=== PATIENT | female | born 1950 | race Caucasian/White ===

== ENCOUNTER → 2017-11-11 01:49 | Outpatient (CLI) | payer MEDICARE, SELFPAY ==
--- NOTE | 2017-11-11 13:10 | DI.REPORT_ITS ---
SYMPTOM/DIAGNOSIS: SCREENING, Z12.31 MAMMOGRAM: Mammograms were interpreted according to the usual protocol including computer analysis with CAD system, tomosynthesis and C view imaging. Comparison with prior examinations. Breast density B. No masses or microcalcifications are seen. There is nothing to suggest malignancy. IMPRESSION: Negative mammogram. Routine screening is recommended. Category I. MQSA ASSESSMENT OF FINDINGS: Negative. Category 1. Patient will receive a letter notifying them of these results. BI-RADS category B. There are scattered areas of fibroglandular density.
--- NOTE | 2017-11-11 14:15 | DI.REPORT_ITS ---
SYMPTOMS/DIAGNOSIS: SCREENING FOR OSTEOPOROSIS IN A POSTMENOPAUSAL WOMAN, Z78.0 DEXA SCAN: Routine examination was performed. No priors for comparison. The lateral spine film shows no compression fracture deformities. Evaluation of the left hip shows a total T score of -1.0 and a Z score of 0.3, which is within normal limits. Evaluation of the lumbar spine shows a total T score of -0.5 and a Z score of 1.3, which is within normal limits. There is no evidence of osteoporosis. IMPRESSION: No evidence of osteoporosis.
== END ==
PROVIDERS: PCP Family Medicine; Visit Provider Family Medicine
DX: Z12.31 Encounter for screening mammogram for malignant neoplasm of breast (principal); Z78.0 Asymptomatic menopausal state; Z13.820 Encounter for screening for osteoporosis
CPT/HCPCS: 77063; 77067; 77080

== ENCOUNTER 2018-12-30 09:14 | Outpatient (REF) | payer MEDICARE, OTHER, SELFPAY ==
[2018-12-30 12:52] LABS: ALT 26 U/L (14-59); AST 26 U/L (15-37); Albumin 4.1 g/dL (3.4-5.0); Alkaline Phosphatase 68 U/L (46-116); Anion Gap 7.8 mmol/L (3-11); BUN 14 mg/dL (7-18); Bilirubin, Total 0.5 mg/dL (0.2-1.0); CO2 29.2 mmol/L (21.0-32.0); CREATININE 0.79 mg/dL (0.55-1.02); Calcium 9.2 mg/dL (8.5-10.1); Calculated LDL 58 mg/dL; Chloride 105 mmol/L (98-107); Cholesterol 141 mg/dL (50-200); Glucose 89 mg/dL (70-100); HDL Cholesterol 68 mg/dL (40-60); Potassium 4.8 mmol/L (3.5-5.1); Sodium 142 mmol/L (136-145); Total Protein 7.6 g/dL (6.4-8.2); Triglyceride 78 mg/dL (30-150)
== END 2018-12-30 09:34 ==
LOC: NCHCN 09:14
PROVIDERS: PCP Family Medicine; Visit Provider Family Medicine
DX: I25.810 Atherosclerosis of coronary artery bypass graft(s) without angina pectoris (principal)
CPT/HCPCS: 80053; 80061

== ENCOUNTER 2019-12-31 04:45 | Outpatient (CLI) | payer MEDICARE, OTHER, SELFPAY ==
--- NOTE | 2019-12-31 12:39 | DI.MAMMO_ITS ---
EXAM: MG MAMMO SCREENING CLINICAL HISTORY: SCREENING,Z12.31 TECHNIQUE: Bilateral full field digital CC and MLO mammographic images were obtained with 3D tomosyn thesis and utilizing computer aided detection (CAD). COMPARISON: Available for comparison. FINDINGS: Masses/Architectural Distortion: None seen. Microcalcifications: No suspicious pleomorphic-type are seen. Skin Thickening/Nipple Retraction: None. IMPRESSION: 1. No significant interval change with no specific features of malignancy noted. 2. Unless there is more urgent need, screening mammography is recommended, as per [employer] guidelines. BI-RADS Category 1 - Negative Breast Density - Category B - Scattered areas of fibroglandular density A negative radiographic report should not delay biopsy if a dominant or clinically suspicious mass is present. Up to ten percent of cancers are not identified on mammography. A negative report may reinforce clinical impression. Adenosis and dense breasts may obscure an underlying neoplasm. False positive reports average 6 to 10%. Patient will receive a letter notifying them of these results.
== END 2019-12-31 05:05 ==
PROVIDERS: PCP Family Medicine; Visit Provider Family Medicine
DX: Z12.31 Encounter for screening mammogram for malignant neoplasm of breast (principal)
CPT/HCPCS: 77063; 77067

== ENCOUNTER 2020-07-27 15:48 | Outpatient (REF) | payer MEDICARE, OTHER, SELFPAY ==
[2020-07-27 21:03] LABS: Abs Immature Grans 0.01 10^3/uL (0.0-0.06); Absolute Basophil Count 0.04 10^3/uL (0.0-0.2); Absolute Eosinophil Count 0.16 10^3/uL (0.0-0.7); Absolute Monocyte Count 0.58 10^3/uL (0.1-0.8); Absolute Neutrophil Count 2.77 10^3/uL (1.2-6.7); Basophils % 0.7; Eosinophils % 2.9; HCT 38.5 % (36.0-46.0); HGB 12.6 g/dL (11.2-15.7); Immature Grans % 0.2; Lymphocytes % 34.8; MCH 31.7 pg (27.0-33.0); MCHC 32.7 % (32.0-36.0); MCV 96.7 fL (80-95); MPV 12.3 fL (8.0-11.0); Monocytes % 10.6; Neutrophils % 50.8; Nucleated RBC 0 %; Platelet Count 221 10^3/uL (130-400); RBC 3.98 10^6/uL (3.93-5.22); RDW 12.1 % (11.7-14.6); RDW-SD 43.4 fL; WBC 5.46 10^3/uL (4.4-10.8)
[2020-07-27 21:09] LABS: ALT 33 U/L (14-59); AST 26 U/L (15-37); Alkaline Phosphatase 69 U/L (46-116); Anion Gap 10.4 mmol/L (3-11); BUN 18 mg/dL (7-18); Bilirubin, Total 0.3 mg/dL (0.2-1.0); CO2 25.6 mmol/L (21.0-32.0); CREATININE 0.8 mg/dL (0.55-1.02); Chloride 105 mmol/L (98-107); Glucose 91 mg/dL (74-106); Potassium 4.2 mmol/L (3.5-5.1); Sodium 141 mmol/L (136-145); Total Protein 7.7 g/dL (6.4-8.2)
== END 2020-07-27 15:49 | disposition home or self-care (01) ==
LOC: NCHCN 15:48
PROVIDERS: PCP Family Medicine; Visit Provider Family Medicine
DX: R53.83 Other fatigue (principal); L29.8 Other pruritus
CPT/HCPCS: 80053; 84443; 85025

== ENCOUNTER 2020-11-17 17:23 | Outpatient (REF) | payer MEDICARE, OTHER, SELFPAY | END 2020-11-17 17:24 | disposition home or self-care (01) | LOC: LBN 17:23 | PROVIDERS: PCP Family Medicine; Visit Provider Physician Assistant | DX: R35.0 Frequency of micturition (principal) | CPT/HCPCS: 87086 ==

== ENCOUNTER → 2021-02-23 09:24 | Outpatient (BNVA) | payer MEDICARE, OTHER, SELFPAY | PROVIDERS: PCP Family Medicine; Referring Provider Family Medicine; Visit Provider Surgery | DX: Z12.11 Encounter for screening for malignant neoplasm of colon (principal); Z12.12 Encounter for screening for malignant neoplasm of rectum; K59.01 Slow transit constipation ==

== ENCOUNTER 2021-03-12 03:50 | Outpatient (CLI) | payer MEDICARE, OTHER, SELFPAY ==
[2021-03-12 10:33] LABS: Source Nasal/Nares
[2021-03-12 14:46] LABS: COVID-19 PCR Negative (Negative)
== END 2021-03-12 03:51 | disposition home or self-care (01) ==
LOC: LBO 03:50
PROVIDERS: PCP Family Medicine; Visit Provider Surgery
DX: Z20.822 Contact with and (suspected) exposure to COVID-19 (principal); Z01.818 Encounter for other preprocedural examination
CPT/HCPCS: 87635

== ENCOUNTER 2021-03-13 08:27 | Day surgery (SDC) | payer MEDICARE, OTHER, SELFPAY ==
--- NOTE | 2021-03-13 06:44 | W.COLOREPORT ---
Colonoscopy Report Date of procedure: 03/13/21 Pre-op diagnosis general: Colon Cancer Screening Post-op diagnosis procedure note: other (diverticula) Procedure: Colonoscopy with biopsy Surgeon: Marcia Sarah Anesthesia Type: General:No Airway (Allen Simon CRNA) Estimated blood loss (mL): 3 Pathology: other (ascending colon polyp ?) Complications: None Disposition: same day Indications: Mrs Grimes is a pleasant 71-year-old female who is never had a colonoscopy before. She comes in today to discuss her first colonoscopy. She has a history of chronic constipation which did get worse about a month ago. With increased of fiber and fluid in her diet this is again gotten better. She has had no weight loss, abdominal pain, melena or him he is here. She has no family history of colon cancer. The patient is anxious because she has had 3 people close to her diagnosed with colon cancer in the last year. She is also had a close friend who had a perforation at the time of a colonoscopy. We did discuss the risks and the benefits and complication rates. I tried to reassure her about the procedure and that it is safe. Risks, benefits and complications have been reviewed. Complications include but are not limited to bleeding, pain, perforation, missed small lesion/polyp, sore throat, aspiration and adverse reaction to the medications. Questions were entertained and answered to their satisfaction and they wished to proceed. No guarantees were given or implied. Proceed with colonoscopy under sedation Prep: Miralax/Dulcolax Procedure Start Time: 10:27 Procedure End Time: 10:52 Retraction Time: 12 minutes Findings: moderate diverticulosis ? polyp in the ascending colon mild melanosis coli Procedure Description: After informed consent was obtained the patient was taken to the procedure room and placed in a left decubitous position. Monitors were applied and a time out was done. The patients name, date of , procedure, allergies to medications and metal in their body was reviewed. The patient was then sedated. Once sedated and comfortable a rectal exam was done. External exam was normal. Internal exam revealed a normal sphincter tone and no palpable masses. The scope was then introduced and retro-flexed. No internal hemorrhoids, polyps or masses were identified on retro-flexion. The scope was then advanced to the cecum without difficulty. The ileocecal vlave and appendiceal orifice were identified. The prep was adequate. The scope was then slowly retracted over 12 minutes back into the rectum. There was a ? of a polyp in the ascending colon which was removed. There was moderate sigmoid diverticulosis noted. The scope was removed and the patient was woken up and taken back to Same day surgery in stable condition. The patient tolerated the procedure well and there were no immediate complications. Follow up: The patient should follow up in 10 years unless they develop changes in bowel habits or other new gastrointestinal complaints.
--- NOTE | 2021-03-13 06:45 | PDOC.DSDIS_ITS ---
Discharge Plan Disposition Patient Disposition: HOME Condition: Good Discharge Details Reason For Visit: Colonoscopy Attending Provider: Marcia Sarah Primary Care Provider: Sheri Vázquez Home Meds and New Rx's Prescriptions: Continued meloxicam 15 mg tablet 15 mg PO DAILY RF: 0 acetaminophen 325 mg capsule 650 mg PO ONCE PRNRF: 0 midodrine 5 mg tablet 5 mg PO BID RF: 0 atorvastatin [Lipitor] 40 MG tablet 1 tab PO HS RF: 0 metoprolol succinate [Toprol XL] 25 MG tablet extended release 24 hr 0.5 tab PO DAILY Qty: 0 RF: 0 aspirin [Aspir-81] 81 MG tablet,delayed release (DR/EC) 81 mg PO DAILY RF: 0 Discontinued bisacodyl [Dulcolax (bisacodyl)] 5 mg tablet,delayed release (DR/EC) 5 mg PO ONCE Qty: 4 RF: 0 polyethylene glycol 3350 17 gram/dose powder 17 g PO ONCE Qty: 238 RF: 0 Discharge Instructions Instructions: Diverticulosis (DC) Additional Instructions: Findings: Sigmoid diverticulosis ? polyp Follow up: will depend on biopsy results Please call if you develop: fevers >101.5 Nausea or Vomiting Abdominal pain that is not transient Rectal bleeding that is more then a tbsp A hard abdomen and inability to pass gas DAY SURGERY UNIT POST ENDOSCOPY INSTRUCTIONS Instructions for everyone who is given Anesthesia: For your safety, please do the following for the next 24 Hours: a. Do not drive or operate dangerous equipment b. Do not drink alcohol beverages or use any recreational drugs for the first 24 hours or while taking pain medications. The medications in your body may have a reaction that can be dangerous. c. Do not make any important decisions or sign any important papers 1. Generally there are no restrictions on your activity after a day or so has gone by, but you may feel a bit fatigued for a few days. 2. After you arrive home you may have a light meal and return to a normal diet as you can tolerate it without feeling sick to your stomach. 3. After surgery, you may feel pain or discomfort. This should be only trans ient, but if it persists please contact your doctor. 4. If there are any questions regarding the findings of your procedure, please feel free to contact your doctor. 6. If you are unable to contact your doctor with a problem, contact the hospital at [phone]. 5. Continue all your regular medications unless directed otherwise. I understand the above instructions and have no questions. Signature of Patient or Responsible Adult Escort Date/Time Name of Responsible Adult Escort Signature of Nurse Date/Time Activity:: Activity as Tolerated Diet:: high fiber diet Discharge Orders Discharge Orders: Discharge Order (Routine); Ordered 03/13/21 Ordered By: Marcia Sarah
[2021-03-13 08:37] VITALS: BP 172/73; PULSE 61; RESP 16; TEMP 36.4; O2SAT 100
[2021-03-13] MEDS: Lactated Ringers 1,000 ML 80 ML IV (09:09)
--- NOTE | 2021-03-13 10:13 | W.ANESPRE ---
General Info Date of Service Date Performed: 03/13/21 Height: 5 ft 6.5 in Weight: 87.9 kg Body Mass Index (BMI): 30.8 Surgical Procedure: Operation Date: 03/13/21 09:50 Proposed Procedures Side Surgeon p Michelle Sarah MD Meds Allergies and Home Medications Allergies Allergy/AdvReac Type Severity Reaction Status Date / Time No Known Allergies Allergy Unverified 03/13/21 08:40 Home Medication Medication Instructions Recorded aspirin [Aspir-81] 81 mg PO DAILY 06/20/16 atorvastatin [Lipitor] 1 tab PO HS 02/15/17 metoprolol succinate [Toprol XL] 0.5 tab PO DAILY #0 02/16/17 acetaminophen 325 mg capsule 650 mg PO ONCE PRN cap 02/06/21 meloxicam 15 mg tablet 15 mg PO DAILY 02/06/21 midodrine 5 mg tablet 5 mg PO BID tab 02/06/21 bisacodyl 5 mg tablet,delayed 5 mg PO ONCE #4 tab 02/23/21 release polyethylene glycol 3350 17 17 g PO ONCE #238 g 02/23/21 gram/dose oral powder Current Visit Medications: Current Medications Generic Name Dose Route Start Last Admin Trade Name Freq PRN Reason Stop Dose Admin Hyoscyamine Sulfate 0.125 mg 03/13/21 06:44 Hyoscyamine 0.125 Mg Sl/Oral/Chew SL DIRECTED PRN Ringer's Solution 1,000 mls @ 80 mls/hr 03/13/21 06:00 03/13/21 09:09 IV 04/11/21 23:59 80 mls/hr INFUSION ASHUTOSH Administration IV Miscellaneous Supplies 1 each 03/13/21 06:00 Iv Access IV 04/11/21 23:59 DIRECTED ASHUTOSH Ondansetron HCl 4 mg 03/13/21 06:44 Ondansetron 4 Mg/2 Ml Vial IVP Q4H PRN PRN Nausea / Vomiting Sodium Chloride 0 ml 03/13/21 06:00 Normal Saline Flush 10 Ml Syr IV 04/11/21 23:59 PRN PRN Sodium Chloride 0 ml 03/13/21 06:00 Normal Saline 10 Ml Vial IJ 04/11/21 23:59 DIRECTED PRN Sterile Water 0 ml 03/13/21 06:00 Water,Injection,Sterile 10 Ml Vial IJ 04/11/21 23:59 DIRECTED PRN PFS Active Problems Active Problems: Problem Status Onset Code Constipation K59.00 Medical History Medical History Chest pain Fatigue History of coronary atherosclerosis Hx of non-ST elevation myocardial infarction (NSTEMI) 2017- /U with Dr. Wisdom last seen 12/2020 Menopause Syncope Surgical History Surgical History (Updated 03/13/21 @ 08:39 by Luz Salcedo RN) H/O section History of coronary artery bypass graft Tobacco Smoking/Tobacco Use Status: Former Tobacco Use Alcohol Alcohol Intake: current Alcohol intake frequency: 0-2 drinks per day Alcohol type: wine Substance Use Substance use: Never Substance use type: does not use Prental History History Para 1 Hx # Term Pregnancies Multiple births Hx # Pregnancies Ectopic pregnancies AB induced Hx Number of Living Children AB spontaneous Vital Signs and Lab Results Vital Signs Most Recent Vital Signs in EMR: Most Recent Vital Signs Temp Pulse Resp BP Pulse Ox 36.4 C L 61 16 172/73 H 100 03/13/21 08:37 03/13/21 08:37 03/13/21 08:37 03/13/21 08:37 03/13/21 08:37 Lab Results Blood Type / Crossmatch: No Data to Display Complete Blood Count: No Data to Display Complete Metabolic Panel: No Data to Display Liver Function Panel: No Data to Display Coagulation Panel: No Data to Display Cardiac Panel: No Data to Display Arterial Blood Gas: No Data to Display Venous Blood Gas: No Data to Display Pancreas Panel: No Data to Display Thyroid Panel: No Data to Display Infectious Disease: Coronavirus (COVID-19)(PCR) Negative (Negative) 03/12/21 09:09 03/12/21 Coronavirus 2019 Source Nasal/Nares 03/12/21 09:09 03/12/21 Blood Cultures: No Data to Display Toxicology Panel: No Data to Display Anesthesia Assessment and Plan Anesthesia History Personal History: No History of Anesthesia Complications Family History: No Family History of Anesthesia Complications Exercise Tolerance Exercise Tolerance: Metabolic Equivalents>4 Pertinent Negatives Pertinent Negatives: No Symptoms of GERD, No Major Cardiovascular Symptoms or Complaints, No Major Pulmonary Symptoms or Complaints and No History of CVA/TIA Cardiac & Pulmonary Exam Cardiac Exam: Normal S1/S2 Heart Sounds Pulmonary Exam: Clear Bilateral Breath Sounds Implantable Cardiac Device Does patient have a Pacemaker or an ICD?: No Airway Exam Known Difficult Airway: No Mallampati Class: 1 Mouth Opening: Normal (> 3cm) Thyromental Distance: Greater than 3 cm Neck Range of Motion: Full ROM Neck Circumference: Normal Teeth Condition: Normal Dentition ASA Classification ASA Score: ASA 2 Emergency Case?: No NPO Status NPO Status: NPO Clears >2 hours, Solids >8 hours Anesthesia Plan Resuscitation Status: Full Code Anesthesia Technique: General Anesthesia Airway Planned: Natural Airway Monitors Used: Standard Monitors
[2021-03-13 10:15] VITALS: BMI 30.8
--- NOTE | 2021-03-13 10:42 | BOWEL_PTH ---
PATIENT: Kimberly Grimes LOC: [facility] U#:[id number] AGE/SX: 71/F ROOM: RE03/13/[address]: Marcia Sarah MD : 1950 BED: DIS: 03/13/2021 SPEC #: [id number] RECD: 03/13/21 12:48 STATUS: BHARATHI REQ #: [id number] KATIE: 03/13/21 10:[address]: Marcia Sarah DEPT: Surgical Specimen RECD BY: Slime Roldan ENTERED: 03/13/21 12:48 SP TYPE: Bowel OTHR DR: Sheri Vázquez Tissues: 1 - BIOPSY BOWEL Procedures: GROSS AND MICRO LEVEL 4 Comments: [id number]
--- NOTE | 2021-03-13 11:00 | W.ANESPOSTOP ---
Postoperative Evaluation Date, Time and Location Date Performed: 03/13/21 Time Performed: 11:00 Patient Location: Day Surgery Unit Vital Signs Most Recent Imported Vital Signs: Most Recent Vital Signs Temp Pulse Resp BP Pulse Ox 36.4 C L 61 16 172/73 H 100 03/13/21 08:37 03/13/21 08:37 03/13/21 08:37 03/13/21 08:37 03/13/21 08:37 Most Recent Manually Entered Vital Signs: Adult Blood Pressure: 110/68 Heart Rate: 60 Respirations: 12 Oxygen Saturation (%): 95 Temperature (C): 36.7 C Pain Score (0-10 Scale): 0 Pain Score Most Recent Pain Score: Most Recent Pain Score Pain Level 0 03/13/21 08:37 Assessment Mental Status: Awake (Alert & Oriented to Patient Baseline) Airway and Respiratory Function: Patent airway with normal (patient baseline) respiratory exam Cardiovascular Function: Hemodynamically Stable Hydration Status: Adequately Hydrated Nausea & Vomiting: No Nausea or Vomiting Pain: Pt. Denies Any Pain Peripheral Nerve Block: Patient did not receive a nerve block
[2021-03-13 11:01] VITALS: BP 110/68; PULSE 60; RESP 12; TEMPC 36.7; O2SAT 95
[2021-03-13 11:02] VITALS: BP 110/68; PULSE 58; RESP 16; TEMP 36.7; O2SAT 97
[2021-03-13 11:30] VITALS: BP 136/67; PULSE 52; RESP 16; TEMP 36.1; O2SAT 99
== END 2021-03-13 11:43 | disposition home or self-care (01) ==
LOC: SUR 08:28
PROVIDERS: PCP Family Medicine; Visit Provider Surgery
PROC: 0DJD8ZZ Inspection of Lower Intestinal Tract, Via Natural or Artificial Opening Endoscopic (ICD-10-PCS; CPT 45378; principal; 2021-03-13 09:45)
DX: Z12.11 Encounter for screening for malignant neoplasm of colon (principal); K63.89 Other specified diseases of intestine; K59.09 Other constipation; K57.30 Diverticulosis of large intestine without perforation or abscess without bleeding
CPT/HCPCS: 45380; 88305

== ENCOUNTER → 2022-02-25 01:42 | Outpatient (CLI) | payer MEDICARE, OTHER, SELFPAY ==
--- NOTE | 2022-02-25 | DI.MAMMO_ITS ---
Exam(s) MAMMO SCREENING EXAM: MAMMO SCREENING CLINICAL HISTORY: SCREENING MAMMO Z12.31 PREVENTATIVE CARE Z00.00. TECHNIQUE: Bilateral full field digital CC and MLO mammographic images were obtained with 3D tomosyn thesis and utilizing computer aided detection (CAD). COMPARISON: Prior mammograms were reviewed. FINDINGS: No new significant findings in left breast. In the right breast there is a new nodule evident inferomedially. This is possibly subcutaneous or s kin mole. There are no malignant-appearing microcalcification groups in this region or elsewhere in either [address]. There is no significant architectural distortion nor skin thickening-retraction. IMPRESSION: No radiographic evidence of malignancy in the left breast.. New nodule-possible skin mole in the right breast. Additional views including repeat views with mole marker in place as well as spot compression views recommended. Also ultrasound. BI-RADS Category 0 - Assessment Incomplete: Need additional imaging evaluation Breast Density - Category B - Scattered areas of fibroglandular density Breast density Category C or D implies that the patient has dense breast tissue. Dense breast tissue can make it harder to find cancer on a mammogram. Dense breast tissue is also associated with an incr eased risk of breast cancer. This information about the result of the mammogram report was provided to the patient to raise their awareness. Use this report when you speak with the patient about their risks for breast cancer, which includes their family history. At that time, you may recommend additional screening tests (Ultrasoun d or MRI) as these tests may add significant information. A negative radiographic report should not delay biopsy if a dominant or clinically suspicious mass is present. Up to ten percent of cancers are not identified on mammography. A negative report may reinforce clinical impression. Adenosis and dense breasts may obscure an underlying neoplasm. False positive reports average 6 to 10%. Patient will receive a letter notifying them of these results.
== END ==
PROVIDERS: PCP Family Medicine; Visit Provider Family Medicine
DX: Z12.31 Encounter for screening mammogram for malignant neoplasm of breast (principal); R92.8 Other abnormal and inconclusive findings on diagnostic imaging of breast
CPT/HCPCS: 77063; 77067

== ENCOUNTER → 2022-03-04 01:55 | Outpatient (CLI) | payer MEDICARE, OTHER, SELFPAY ==
--- NOTE | 2022-03-04 13:20 | DI.MAMMO_ITS ---
Exam(s) MAMMO SCREEN CALL BACK UNI EXAM: MAMMO SCREEN CALL BACK UNI CLINICAL HISTORY: F/U MAMMO, NEW NODULE,? SKIN MOLE,R92.8 TECHNIQUE: MLO spot compression views with tomographic imaging were performed. COMPARISON: 25 February 2022 and exams back to 2013. FINDINGS: AP marker was placed over the palpable abnormality in the inferior right breast. This corresponds to a skin lesion.No suspicious masses or suspicious microcalcifications are seen within the breast tiss ue.. IMPRESSION: BI-RADS Category 1, Negative Yearly screening mammography is recommended. Breast Density - Category B, scattered fibroglandular densities.
== END ==
PROVIDERS: PCP Family Medicine; Visit Provider Family Medicine
DX: Z12.31 Encounter for screening mammogram for malignant neoplasm of breast (principal); R92.8 Other abnormal and inconclusive findings on diagnostic imaging of breast; N64.59 Other signs and symptoms in breast
CPT/HCPCS: 77063; 77067

== ENCOUNTER → 2023-06-26 02:35 | Outpatient (CLI) | payer MEDICARE, SELFPAY ==
--- NOTE | 2023-06-26 | DI.MAMMO_ITS ---
Exam(s) MAMMO SCREENING EXAM: MAMMO SCREENING CLINICAL HISTORY: SCREENING,Z12.31,WELL ADULT/PREVENTATIVE EXAM,Z00.00 TECHNIQUE: Bilateral full field digital CC and MLO mammographic images were obtained with 3D tomosyn thesis and utilizing computer aided detection (CAD). COMPARISON: Available for comparison. FINDINGS: Masses/Architectural Distortion: None seen. Microcalcifications: No suspicious pleomorphic-type are seen. Skin Thickening/Nipple Retraction: None. IMPRESSION: 1. No significant interval change with no specific features of malignancy noted. 2. Unless there is more urgent need, screening mammography is recommended, as per [place] [employer] guidelines. BI-RADS Category 1 - Negative Breast Density - Category B - Scattered areas of fibroglandular density Breast density category C or D implies that the patient has dense breast tissue. Dense breast tissue is very common and is not abnormal but dense breast tissue can make it harder to find cancer on a ma mmogram. Also, dense breast tissue may increase their breast cancer risk. This information about the result of the mammogram report was provided to the patient to raise their awareness. Use this report when you speak with the patient about their risks for breast cancer, which includes their family hist ory. At that time, you may recommend for more screening tests (Ultrasound or MRI) as they might be us eful based on their risk. A negative radiographic report should not delay biopsy if a dominant or clinically suspicious mass is present. Up to ten percent of cancers are not identified on mammography. A negative report may reinforce clinical impression. Adenosis and dense breasts may obscure an underlying neoplasm. False positive reports average 6 to 10%. Patient will receive a letter notifying them of these results.
== END ==
PROVIDERS: PCP Family Medicine; Visit Provider Family Medicine
DX: Z12.31 Encounter for screening mammogram for malignant neoplasm of breast (principal)
CPT/HCPCS: 77063; 77067

== ENCOUNTER 2023-10-02 17:06 | Outpatient (REF) | payer MEDICARE, SELFPAY ==
[2023-10-02 20:52] LABS: ALT 26 U/L (14-59); AST 22 U/L (15-37); Albumin 4.2 g/dL (3.4-5.0); Alkaline Phosphatase 71 U/L (46-116); Anion Gap 4.4 mmol/L (3-11); BUN 20 mg/dL (7-18); Bilirubin, Total 0.65 mg/dL (0.2-1.0); CO2 26.6 mmol/L (21.0-32.0); CREATININE 0.9 mg/dL (0.55-1.02); Calcium 9.1 mg/dL (8.5-10.1); Calculated LDL 64 mg/dL (<100); Chloride 106 mmol/L (98-107); Cholesterol 146 mg/dL (<200); Estimated GFR 68.35 (mL/min/1.73m2); Glucose 87 mg/dL (74-106); HDL Cholesterol 66 mg/dL (40-60); Potassium 4.9 mmol/L (3.5-5.1); Sodium 137 mmol/L (136-145); Total Protein 7.8 g/dL (6.4-8.2); Triglyceride 80 mg/dL (<150); Vitamin D 25 Total 16.8 ng/mL (30-100)
== END 2023-10-02 17:07 | disposition home or self-care (01) ==
LOC: NCHCN 17:06
PROVIDERS: PCP Family Medicine; Visit Provider Family Medicine
DX: Z00.00 Encounter for general adult medical examination without abnormal findings (principal)
CPT/HCPCS: 80053; 80061; 82306

== ENCOUNTER 2024-02-17 08:39 | Outpatient (CLI) | payer MEDICARE, SELFPAY ==
--- NOTE | 2024-02-17 08:30 | RT.EKG_ITS ---
APPROVED REPORT Exam: Resting ECG Reason for Exam: CAD Patient Location: O HR:60 bpm ECG Measurements Heart Rate 60 AXIS MA 179 P 38 QRSd 87 QRS 18 QT 424 T 73 QTc 424 Conclusion Sinus rhythm...normal P axis, V-rate 50- 99 Probable left atrial enlargement...P >50mS, <-0.10mV V1 Otherwise normal ECG
== END 2024-02-17 08:40 | disposition home or self-care (01) ==
LOC: DI.CARD 08:39
PROVIDERS: PCP Family Medicine; Visit Provider Internal Medicine Cardiovascular Disease
DX: I25.10 Atherosclerotic heart disease of native coronary artery without angina pectoris (principal)
CPT/HCPCS: 93010

== ENCOUNTER → 2024-02-17 11:06 | Outpatient (BNVA) | payer MEDICARE, SELFPAY | PROVIDERS: PCP Family Medicine; Referring Provider Family Medicine; Visit Provider Internal Medicine Cardiovascular Disease | DX: I25.810 Atherosclerosis of coronary artery bypass graft(s) without angina pectoris (principal) | CPT/HCPCS: 93005; 99214 ==

== ENCOUNTER 2024-10-28 10:47 | Outpatient (REF) | payer MEDICARE, SELFPAY ==
[2024-10-28 18:33] LABS: ALT 29 U/L (14-59); AST 24 U/L (15-37); Albumin 4.2 g/dL (3.4-5.0); Alkaline Phosphatase 61 U/L (46-116); Anion Gap 10.8 mmol/L (3-11); BUN 16 mg/dL (7-18); Bilirubin, Total 0.5 mg/dL (0.2-1.0); CO2 26.2 mmol/L (21.0-32.0); Calcium 9.1 mg/dL (8.5-10.1); Calculated LDL 55 mg/dL (<100); Chloride 106 mmol/L (98-107); Cholesterol 129 mg/dL (<200); Estimated GFR 59.86 (mL/min/1.73m2); Glucose 88 mg/dL (74-106); HDL Cholesterol 61 mg/dL (>or=50); Potassium 5.0 mmol/L (3.5-5.1); Sodium 143 mmol/L (136-145); Total Protein 7.6 g/dL (6.4-8.2); Triglyceride 66 mg/dL (<150); Vitamin D 25 Total 30 ng/mL (30-100)
== END 2024-10-28 10:48 | disposition home or self-care (01) ==
LOC: NCHCN 10:47
PROVIDERS: PCP Family Medicine; Visit Provider Family Medicine
DX: Z13.220 Encounter for screening for lipoid disorders (principal); Z00.00 Encounter for general adult medical examination without abnormal findings
CPT/HCPCS: 80053; 80061; 82306

== ENCOUNTER → 2024-11-23 09:41 | Outpatient (BNVA) | payer MEDICARE, OTHER, SELFPAY | PROVIDERS: PCP Family Medicine; Referring Provider Family Medicine; Visit Provider Internal Medicine Cardiovascular Disease | DX: I25.810 Atherosclerosis of coronary artery bypass graft(s) without angina pectoris (principal) | CPT/HCPCS: 99213 ==

== ENCOUNTER → 2025-03-03 00:19 | Outpatient (CLI) | payer MEDICARE, OTHER, SELFPAY ==
--- NOTE | 2025-03-03 | DI.MAMMO_ITS ---
Exam(s) MAMMO SCREENING EXAM: MAMMO SCREENING CLINICAL HISTORY: SCREENING, Z12.31 TECHNIQUE: Bilateral full field digital CC and MLO mammographic images were obtained with 3D tomosynthesis and utilizing computer aided detection (CAD). COMPARISON: Comparison is made with prior examinations. FINDINGS: Masses/Architectural Distortion: No suspicious masses or areas of architectural distortion are present. Microcalcifications: No suspicious pleomorphic-type are seen. Skin Thickening/Nipple Retraction: None. IMPRESSION: 1. No significant interval change with no specific features of malignancy noted. 2. Unless there is more urgent need, screening mammography is recommended, as per [place] [employer] guidelines. BI-RADS Category 1 - Negative Breast Density - Category B - There are scattered areas of fibroglandular density. Breast density Category C or D implies that the patient has dense breast tissue. Dense breast tissue can make it harder to find cancer on a mammogram. Dense breast tissue is also associated with an increased risk of breast cancer. This information about the result of the mammogram report was provided to the patient to raise their awareness. Use this report when you speak with the patient about their risks for breast cancer, which includes their family history. At that time, you may recommend additional screening tests (Ultrasound or MRI) as these tests may add significant information. A negative radiographic report should not delay biopsy if a dominant or clinically suspicious mass is present. Up to ten percent of cancers are not identified on mammography. A negative report may reinforce clinical impression. Adenosis and dense breasts may obscure an underlying neoplasm. False positive reports average 6 to 10%. Patient will receive a letter notifying them of these results.
== END ==
LOC: DI 00:19
PROVIDERS: PCP Family Medicine; Visit Provider Family Medicine
DX: Z12.31 Encounter for screening mammogram for malignant neoplasm of breast (principal)
CPT/HCPCS: 77063; 77067